=== PATIENT | male | born 1950 | race Two or more races ===

== ENCOUNTER 2017-07-16 08:07 | Inpatient (IN) | payer MEDICARE, OTHER ==
[~2017-07-16] VITALS: Ht 172.7 cm; Wt 72.6 kg
[2017-07-16] VITALS (12 sets, daily range): BP systolic 123–155; BP diastolic 59–78
[~2017-07-16 08:07] MED LIST: ENALAPRIL MALEA10 MG ORAL; GLIMEPIRIDE4 MG ORAL; LOSARTAN POTASS25 MG ORAL; METFORMIN HCL1000 M1 ORAL; METOPROLOL SUCC25 MG ORAL; [UNRECOGNIZED DRUG - OTHER] PO; ceFAZolin sod 1 GM in NS 55 ML IVPB ONE
--- NOTE | 2017-07-16 12:03 | Pre-Procedure Note/Attestation ---
Pre-Procedure Note/Attestation Complete Prior to Procedure Planned Procedure: not applicable Procedure Narrative: TURP Indications for Procedure Pre-Operative Diagnosis: BPH Attestation I attest that I discussed the nature of the procedure; its benefits; risks and complications; and alternatives (and the risks and benefits of such alternatives ), prior to the procedure, with the patient (or the patient's legal paper sales representative). I attest that, if there was a reasonable possibility of needing a blood transfusion, the patient (or the patient's legal paper sales representative) was given the [facility] standardized written summary, pursuant to the [place] Blood Safety Act ([place] [facility] and Safety Code # 1645, as amended). I attest that I re-evaluated the patient just prior to the surgery and that there has been no change in the patient's H&P, except as documented below: Kadeem Pal MD Jul 16, 2017 12:03
--- NOTE | 2017-07-16 12:04 | Brief Operative Note ---
Immediate Post Operative Note Operative Note Pre-op Diagnosis: BPH Procedure: TURP Post-op Diagnosis: same Post-op Diagnosis: same as pre-op Surgeon: Pedro Pal Anesthesia: general Specimen: yes Complications: none Condition: stable Estimated Blood Loss: minimal Implant(s) used?: No Kadeem Pal MD Jul 16, 2017 12:04
[2017-07-16] MEDS ORDERED: Norco 5mg/325mg tab ORAL PRN (12:15)
[2017-07-16] MEDS ORDERED: HYDROmorphone 1mg/ml Carpuject IVP PRN (12:15)
[2017-07-16] MEDS ORDERED: NS Irrig 4000ml IRRIG ONE ×2 (12:30→12:40)
[2017-07-16] MEDS ORDERED: Midazolam 2mg/2ml Inj ONE (12:40)
[2017-07-16] MEDS ORDERED: LR 1000ml ONE (12:40)
[2017-07-16] MEDS ORDERED: Morphine Sulfate 10mg/ml Inj ONE ×2 (12:40)
[2017-07-16] MEDS ORDERED: fentaNYL 100 mcg/2 mL IV ONE (12:40)
[2017-07-16] MEDS ORDERED: NS Irrig 1000ml ONE (12:40)
[2017-07-16] MEDS ORDERED: Ketorolac 30mg Inj ONE (12:40)
[2017-07-16] MEDS ORDERED: Sterile Water Irrig 1000ml IRRIG ONE (12:40)
[2017-07-16] MEDS ORDERED: Propofol 10mg/ml 20ml IV ONE (12:40)
[2017-07-16] MEDS ORDERED: LR 1000ml 1,000 ML IVLG SCH (13:10)
--- NOTE | 2017-07-16 13:10 | Anethesia Preoperative Eval ---
Anesthesia Pre-op PMH/ROS General Date of Evaluation: Jul 16, 2017 Time of Evaluation: 12:15 Anesthesiologist: Khris ASA Score: ASA 3 Mallampati Score Class I : Soft palate, uvula, fauces, pillars visible Class II: Soft palate, uvula, fauces visible Class III: Soft palate, base of uvula visible Class IV: Only hard plate visible Mallampati Classification: Class II Surgeon: Demarco Diagnosis: BPH Surgical Procedure: TUPR Anesthesia History: none Social History: smoking - h/o Family History: no anesthesia problems Allergies: Coded Allergies: PENICILLINS (Verified Allergy, Unknown, 07/15/17) Medications: see eMAR Past Medical History Cardiovascular: Reports: HTN, Denies: CAD, NM, arrhythmia, other, valve dz Pulmonary: Denies: COPD, ANTONIO, asthma, other Gastrointestinal/Genitourinary: Reports: GERD - mild, Denies: CRI, ESRD, other Neurologic/Psychiatric: Denies: CVA, TIA, dementia, depression/anxiety, other Endocrine: Reports: DM - on pills, Denies: hypothyroidism, other, steroids Hematology/Immune: Denies: DVT, anemia, bleeding disorder, other Musculoskeletal/Integumentary: Denies: DDD, DJD, OA, RA, edema, other PMH Narrative: as above PSxH Narrative: hernia repair Anesthesia Pre-op Phys. Exam Physician Exam Last Vital Signs Date Time Temp Pulse Resp B/P Pulse Ox O2 Delivery O2 Flow Rate FiO2 07/16/17 08:47 97.5 65 18 155/78 94 Room Air Constitutional: NAD Neurologic: CN 2-12 intact Cardiovascular: RRR, no M/R/G Respiratory: CTA Gastrointestinal: S/NT/ND Airway Exam Mallampati Score: Class II MO: limited Neck: stiff ROM: limited Teeth: missing Dentures: lower - partial, upper Anesthesia Pre-op A/P Labs see chart Studies Pre-op Studies: EKG - NSR Risk Assessment & Plan Assessment: ASA 3 Plan: GA with LMA Status Change Before Surgery: No Pre-Antibiotics Drug: Ancef 1gr. Given Within 1 Hr of Incision: Yes Time Given: 12:40 LONDON DIAL M.D. Jul 16, 2017 13:10
[2017-07-16] MEDS ORDERED: DiphenhydrAMINE 50mg/ml Inj IVP PRN (13:15)
[2017-07-16] MEDS ORDERED: Hydromorphone 0.5mg/0.5ml inj IVP PRN (13:15)
[2017-07-16] MEDS ORDERED: Meperidine 25mg/0.5ml Inj (FOR RIGORS ONLY) IV PRN (13:15)
[2017-07-16] MEDS ORDERED: Midazolam 2mg/2ml Inj IVP PRN (13:15)
--- NOTE | 2017-07-16 13:39 | Immediate Post-Op Evaluation ---
Immediate Post-Op Evalulation Immediate Post-Op Evalulation Procedure: TURP Date of Evaluation: Jul 16, 2017 Time of Evaluation: 13:37 IV Fluids: 1600 Blood Products: none Estimated Blood Loss: 50 Urinary Output: n/a Blood Pressure Systolic: 142 Blood Pressure Diastolic: 68 Pulse Rate: 62 Respiratory Rate: 20 O2 Sat by Pulse Oximetry: 99 Temperature (Fahrenheit): 97.6 Pain Score (1-10): 2 Nausea: No Vomiting: No Complications none Patient Status: patent, none Hydration Status: adequate LONDON DIAL M.D. Jul 16, 2017 13:39
[2017-07-16 14:30] LABS: BASOPHILS % (AUTO) 0.4 % (0.0-2.0); EOSINOPHILS % (AUTO) 0.8 % (0.0-3.0); LYMPHOCYTES % (AUTO) 24.9 % (20.0-45.0); MEAN CORPUSCULAR HEMOGLOBIN 29.6 PG (27.0-31.0); MEAN CORPUSCULAR HGB CONC 33.4 G/DL (32.0-36.0); MEAN CORPUSCULAR VOLUME 89 FL (80-99); MEAN PLATELET VOLUME 6.1 FL (6.5-10.1); MONOCYTES % (AUTO) 4.7 % (1.0-10.0); NEUTROPHILS % (AUTO) 69.3 % (45.0-75.0); PLATELET COUNT 210 K/UL (150-450); RED BLOOD COUNT 4.51 M/UL (4.70-6.10); RED CELL DISTRIBUTION WIDTH 11.2 % (11.6-14.8); WHITE BLOOD COUNT 8.1 K/UL (4.8-10.8)
[2017-07-16 14:42] LABS: ANION GAP 8 (5-15); CARBON DIOXIDE 29 mEQ/L (20-30); CHLORIDE 104 mEQ/L (98-107); CREATININE 0.9 mg/dL (0.7-1.2); GLOMERULAR FILTRATION RATE > 60 mL/min (>60); HEMOLYSIS 2; POTASSIUM 3.7 mEQ/L (3.4-4.9); SODIUM 141 mEQ/L (135-145)
[2017-07-16] MEDS: D5 1/2NS w/KCl 20mEq 1,000 ML IV SCH (16:35)
--- NOTE | 2017-07-16 16:41 | History and Physical ---
History of Present Illness General Date patient seen: Jul 16, 2017 Present Illness HPI 67 year old male with hx of DM, HTN, admitted for prostatecomy. Pt tolerated the procedure well and admitted to floor for postoperative care. Allergies: Coded Allergies: PENICILLINS (Verified Allergy, Unknown, 07/15/17) Medication History Scheduled Enalapril Maleate* (Enalapril Maleate*), 10 MG ORAL DAILY, (Reported) Glimepiride* (Glimepiride*), 4 MG ORAL BEFORE BREAKFAST, (Reported) Losartan Potassium* (Losartan Potassium*), 12.5 MG ORAL DAILY, (Reported) Metformin Hcl* (Metformin Hcl*), 1,000 MG ORAL BID, (Reported) Metoprolol Succinate* (Metoprolol Succinate*), 25 MG ORAL DAILY, (Reported) [Dudasteride], 0.5 MG PO DAILY, (Reported) Patient History Healthcare decision maker N Resuscitation status Full Code Advanced Directive on File No Review of Systems All Other Systems: negative except mentioned in HPI Physical Exam General Appearance: WD/WN, lethargic Lines, tubes and drains: peripheral, central line HEENT: normocephalic, anicteric, PERRL Neck: normal alignment Respiratory/Chest: chest wall non-tender, lungs clear Breasts: no masses Cardiovascular/Chest: normal rate, regularly irregular Abdomen: normal bowel sounds, non tender Genitourinary/Rectal: normal genital exam, normal rectal exam Last 24 Hour Vital Signs Date Time Temp Pulse Resp B/P Pulse Ox O2 Delivery O2 Flow Rate FiO2 07/16/17 15:25 97.7 58 18 130/62 96 Room Air 07/16/17 15:00 60 18 135/65 97 Room Air 07/16/17 14:45 61 17 132/63 95 Room Air 07/16/17 14:30 97.3 58 18 139/61 96 Room Air 07/16/17 14:15 60 15 138/67 97 Room Air 07/16/17 14:00 56 17 123/63 99 Simple Mask 6.0 07/16/17 13:50 58 14 132/63 99 Simple Mask 6.0 07/16/17 13:40 61 17 126/59 100 Simple Mask 6.0 07/16/17 13:39 62 20 99 07/16/17 13:32 97.8 62 20 142/68 99 Simple Mask 6.0 07/16/17 08:47 97.5 65 18 155/78 94 Room Air Laboratory Tests Test 07/16/17 14:20 White Blood Count 8.1 K/UL (4.8-10.8) Red Blood Count 4.51 M/UL (4.70-6.10) L Hemoglobin 13.4 G/DL (14.2-18.0) L Hematocrit 40.0 % (42.0-52.0) L Mean Corpuscular Volume 89 FL (80-99) Mean Corpuscular Hemoglobin 29.6 PG (27.0-31.0) Mean Corpuscular Hemoglobin Concent 33.4 G/DL (32.0-36.0) Red Cell Distribution Width 11.2 % (11.6-14.8) L Platelet Count 210 K/UL (150-450) Mean Platelet Volume 6.1 FL (6.5-10.1) L Neutrophils (%) (Auto) 69.3 % (45.0-75.0) Lymphocytes (%) (Auto) 24.9 % (20.0-45.0) Monocytes (%) (Auto) 4.7 % (1.0-10.0) Eosinophils (%) (Auto) 0.8 % (0.0-3.0) Basophils (%) (Auto) 0.4 % (0.0-2.0) Sodium Level 141 mEQ/L (135-145) Potassium Level 3.7 mEQ/L (3.4-4.9) Chloride Level 104 mEQ/L (98-107) Carbon Dioxide Level 29 mEQ/L (20-30) Anion Gap 8 (5-15) Blood Urea Nitrogen 13 mg/dL (7-23) Creatinine 0.9 mg/dL (0.7-1.2) Estimat Glomerular Filtration Rate > 60 mL/min (>60) Glucose Level 186 mg/dL (74-106) H Calcium Level 10.0 mg/dL (8.6-10.2) Height (Feet): 5 Height (Inches): 8.00 Weight (Pounds): 160 Medications Current Medications Medications (Trade) Dose Ordered Sig/John Route PRN Reason Start Time Stop Time Status Last Admin Dose Admin Acetaminophen (Tylenol) 650 mg Q4H PRN ORAL FEVER 07/16/17 12:15 08/15/17 12:14 Acetaminophen (Tylenol) 650 mg Q6H PRN ORAL Mild Pain (Pain Scale 1-3) 07/16/17 12:15 08/15/17 12:14 Acetaminophen/ Hydrocodone Bitart ([place] 5/325) 1 tab Q4H PRN ORAL Moderate Pain (Pain Scale 4-6) 07/16/17 12:15 07/23/17 12:14 Cefazolin Sodium (Ancef 2gm/50ml premix) 50 ml @ 100 mls/hr Q8H IV 07/16/17 20:00 07/17/17 04:29 Dextrose/ Electrolytes (D5 0.45%NS W/ KCl 20mEq) 1,000 ml @ 100 mls/hr Q10H IV 07/16/17 16:30 08/15/17 16:29 Docusate Sodium (Colace) 100 mg TWICE A DAY ORAL 07/16/17 18:00 08/15/17 17:59 Hydromorphone HCl (Dilaudid) 1 mg Q3H PRN IVP pain score 4-6 07/16/17 12:15 07/23/17 12:14 Ondansetron HCl 4 mg 4 mg Q4H PRN IVP Nausea & Vomiting 07/16/17 15:45 08/15/17 15:44 07/16/17 15:48 Temazepam (Restoril) 7.5 mg DAILYPRN PRN ORAL Insomnia 07/16/17 12:15 07/23/17 12:14 Assessment/Plan Problem List: (1) S/P prostatectomy ICD Codes: Z90.79 - Acquired absence of other genital organ(s) SNOMED: 40275104, 17643337, 873724406 (2) Diabetes mellitus ICD Codes: E11.9 - Type 2 diabetes mellitus without complications SNOMED: 23113066 (3) Hypertension ICD Codes: I10 - Essential (primary) hypertension SNOMED: 71276745 Assessment/Plan frequent irrigation sliding scale diabetic diet symptomatic treatment NICK DESIR Jul 16, 2017 16:41
[2017-07-16] MEDS ORDERED: Zolpidem 5mg tab ORAL PRN (16:45)
[2017-07-16] MEDS ORDERED: Miralax 17gm pkt ORAL PRN (16:45)
[2017-07-16] MEDS ORDERED: Mylanta II UD 30ml ORAL PRN (16:45)
[2017-07-16] MEDS ORDERED: LORazepam Inj 2mg/ml 1ml IV PRN (16:45)
[2017-07-16] MEDS ORDERED: Morphine Sulfate 2mg/ml Inj IVP PRN (16:45)
[2017-07-16] MEDS: Docusate 100mg cap ORAL SCH (17:40)
[2017-07-16] MEDS: ceFAZolin 2gm/50ml Premix 50 ML IV SCH (19:35)
[2017-07-16] MEDS ORDERED: ceFAZolin sod 2 GM in D5W 110 ML IV SCH (20:00)
[2017-07-16] MEDS: NovoLOG Insulin Flexpen SUBQ SCH (20:06)
[2017-07-17] VITALS (7 sets, daily range): BP systolic 123–171; BP diastolic 60–78
[2017-07-17] MEDS: D5 1/2NS w/KCl 20mEq 1,000 ML IV SCH ×2 (02:30→06:18)
[2017-07-17] MEDS: ceFAZolin 2gm/50ml Premix 50 ML IV SCH (04:16)
[2017-07-17] MEDS: NovoLOG Insulin Flexpen SUBQ SCH ×4 (06:19→20:23)
[2017-07-17 07:29] LABS: BASOPHILS % (AUTO) 0.2 % (0.0-2.0); LYMPHOCYTES % (AUTO) 22.7 % (20.0-45.0); MEAN CORPUSCULAR HEMOGLOBIN 30.5 PG (27.0-31.0); MEAN CORPUSCULAR HGB CONC 34.3 G/DL (32.0-36.0); MEAN CORPUSCULAR VOLUME 89 FL (80-99); MEAN PLATELET VOLUME 6.7 FL (6.5-10.1); MONOCYTES % (AUTO) 6.2 % (1.0-10.0); NEUTROPHILS % (AUTO) 69.8 % (45.0-75.0); PLATELET COUNT 175 K/UL (150-450); RED BLOOD COUNT 4.12 M/UL (4.70-6.10); RED CELL DISTRIBUTION WIDTH 10.9 % (11.6-14.8); WHITE BLOOD COUNT 9.3 K/UL (4.8-10.8)
[2017-07-17 07:43] LABS: ALANINE AMINOTRANSFERASE 9 U/L (3-41); ALBUMIN/GLOBULIN RATIO 1.7 (1.0-2.7); ANION GAP 10 (5-15); ASPARTATE AMINO TRANSFERASE 12 U/L (5-40); CALCIUM 8.3 mg/dL (8.6-10.2); CARBON DIOXIDE 27 mEQ/L (20-30); CHLORIDE 101 mEQ/L (98-107); CHOLESTEROL 189 mg/dL (< 200); CHOLESTEROL/HDL RATIO 4.1 (3.3-4.4); CREATININE 0.9 mg/dL (0.7-1.2); GLOMERULAR FILTRATION RATE > 60 mL/min (>60); HEMOLYSIS 4; LDL CHOLESTEROL (CALC.) 122 mg/dL (60-99); POTASSIUM 3.2 mEQ/L (3.4-4.9); SODIUM 138 mEQ/L (135-145); TOTAL PROTEIN 5.4 g/dL (6.6-8.7)
[2017-07-17] MEDS: Metoprolol Succinate XL 25mg tab ORAL SCH (08:30)
[2017-07-17] MEDS: Docusate 100mg cap ORAL SCH ×2 (08:37→17:24)
[2017-07-17] MEDS: Losartan 25mg tab ORAL SCH ×2 (08:37→15:37)
--- NOTE | 2017-07-17 12:09 | 48 Hour Post Anesthesia Eval ---
Post Anesthesia Evaluation Procedure: TURP Date of Evaluation: Jul 17, 2017 Time of Evaluation: 12:08 Blood Pressure Systolic: 124 0: 58 Pulse Rate: 64 Respiratory Rate: 20 Temperature (Fahrenheit): 97.5 O2 Sat by Pulse Oximetry: 98 Airway: patent Nausea: No Vomiting: No Pain Intensity: 2 Hydration Status: adequate Cardiopulmonary Status: stable Mental Status/LOC: patient returned to baseline Follow-up Care/Observations: n/a Post-Anesthesia Complications: none Follow-up care needed: ready to discharge LONDON DIAL M.D. Jul 17, 2017 12:09
[2017-07-17] MEDS: Levofloxacin 500mg tab ORAL SCH (17:24)
--- NOTE | 2017-07-17 19:31 | Pulmonology Progress Note ---
Assessment/Plan Problems: (1) S/P prostatectomy (2) Diabetes mellitus (3) Hypertension Subjective Allergies: Coded Allergies: PENICILLINS (Verified Allergy, Unknown, 07/15/17) Objective Last 24 Hour Vital Signs Date Time Temp Pulse Resp B/P Pulse Ox O2 Delivery O2 Flow Rate FiO2 07/17/17 16:54 61 160/77 07/17/17 16:36 98.2 62 20 171/78 100 Room Air 07/17/17 15:38 171/78 07/17/17 15:37 171/78 07/17/17 12:09 64 20 98 07/17/17 12:00 97.1 53 21 148/71 98 Room Air 07/17/17 08:32 98.8 51 19 123/60 99 Room Air 07/17/17 08:30 51 123/60 07/17/17 04:47 97.5 53 18 136/60 97 Room Air 07/17/17 00:28 97.9 55 17 136/67 97 Room Air 07/16/17 20:00 98.1 57 18 148/71 98 Room Air Intake and Output 07/16/17 07/17/17 19:00 07:00 Intake Total 740 ml 23908 ml Output Total 901 ml 1451 ml Balance -161 ml 44463 ml Intake Oral 340 ml 200 ml IV Total 400 ml 850 ml Other 61007 ml Output Urine Total 850 ml 1450 ml Emesis 1 ml 1 ml Estimated Blood Loss 50 ml # Voids 1 Laboratory Tests 07/17/17 05:05: White Blood Count 9.3, Red Blood Count 4.12L, Hemoglobin 12.6L, Hematocrit 36.7L , Mean Corpuscular Volume 89, Mean Corpuscular Hemoglobin 30.5, Mean Corpuscular Hemoglobin Concent 34.3, Red Cell Distribution Width 10.9L, Platelet Count 175, Mean Platelet Volume 6.7, Neutrophils (%) (Auto) 69.8, Lymphocytes (%) (Auto) 22.7, Monocytes (%) (Auto) 6.2, Eosinophils (%) (Auto) 1.0, Basophils (%) (Auto) 0.2, Sodium Level 138, Potassium Level 3.2L, Chloride Level 101, Carbon Dioxide Level 27, Anion Gap 10, Blood Urea Nitrogen 11, Creatinine 0.9, Estimat Glomerular Filtration Rate > 60, Glucose Level 179H, Calcium Level 8.3L, Total Bilirubin 0.5, Aspartate Amino Transf (AST/SGOT) 12, Alanine Aminotransferase (ALT/SGPT) 9, Alkaline Phosphatase 48, Total Protein 5.4L, Albumin 3.4L, Globulin 2.0, Albumin/Globulin Ratio 1.7, Triglycerides Level 103, Cholesterol Level 189, LDL Cholesterol 122H, HDL Cholesterol 46, Cholesterol/HDL Ratio 4.1 Current Medications Medications (Trade) Dose Ordered Sig/John Route PRN Reason Start Time Stop Time Status Last Admin Dose Admin Acetaminophen (Tylenol) 650 mg Q4H PRN ORAL FEVER 07/16/17 12:15 08/15/17 12:14 Acetaminophen (Tylenol) 650 mg Q6H PRN ORAL Mild Pain (Pain Scale 1-3) 07/16/17 12:15 08/15/17 12:14 Acetaminophen/ Hydrocodone Bitart ([place] 5/325) 1 tab Q4H PRN ORAL Moderate Pain (Pain Scale 4-6) 07/16/17 12:15 07/23/17 12:14 Al Hydroxide/Mg Hydroxide (Mylanta II) 30 ml Q6H PRN ORAL dyspepsia 07/16/17 16:45 08/15/17 16:44 Dextrose (Dextrose 50%) STAT PRN IV Hypoglycemia 07/16/17 16:45 08/15/17 16:44 Docusate Sodium (Colace) 100 mg TWICE A DAY ORAL 07/16/17 18:00 08/15/17 17:59 Enalapril Maleate (Vasotec) 10 mg DAILY ORAL 07/17/17 09:00 08/16/17 08:59 07/17/17 15:38 Hydromorphone HCl (Dilaudid) 1 mg Q3H PRN IVP pain score 4-6 07/16/17 12:15 07/23/17 12:14 Insulin Aspart (NovoLOG) BEFORE MEALS AND HS SUBQ 07/16/17 21:00 08/15/17 20:59 07/17/17 16:17 Levofloxacin (Levaquin) 500 mg BID ORAL 07/17/17 18:00 07/24/17 17:59 07/17/17 17:24 Lorazepam (Ativan 2mg/ml 1ml) 0.5 mg Q4H PRN IV For Anxiety 07/16/17 16:45 07/23/17 16:44 Losartan Potassium (Cozaar) 12.5 mg DAILY ORAL 07/17/17 09:00 08/16/17 08:59 07/17/17 15:37 Metoprolol Succinate (Toprol XL) 25 mg DAILY ORAL 07/17/17 09:00 08/16/17 08:59 07/17/17 08:30 Morphine Sulfate (Morphine Sulfate) 1 mg Q4H PRN IVP For Pain 4-10 07/16/17 16:45 07/23/17 16:44 Ondansetron HCl (Zofran) 4 mg Q4H PRN IVP Nausea & Vomiting 07/16/17 15:45 08/15/17 15:44 07/16/17 20:02 Polyethylene Glycol (Miralax) 17 gm HSPRN PRN ORAL Constipation 07/16/17 16:45 08/15/17 16:44 Temazepam (Restoril) 7.5 mg DAILYPRN PRN ORAL Insomnia 07/16/17 12:15 07/23/17 12:14 Zolpidem Tartrate (Ambien) 5 mg HSPRN PRN ORAL Unrelieved Insomnia 07/16/17 16:45 08/15/17 16:44 NICK DESIR Jul 17, 2017 19:31
--- NOTE | 2017-07-17 20:02 | Operative Note - Dictated ---
DATE OF OPERATION: 07/16/2017 PREOPERATIVE DIAGNOSIS: BPH retention. POSTOPERATIVE DIAGNOSIS: BPH retention. OPERATION: Transurethral resection of the prostate. SURGEON: Kadeem Pal M.D. ANESTHESIA: General. FINDINGS: Enlarged prostate. INDICATION FOR SURGERY: Chronic urological symptoms despite medical therapy. Treatment options were explained to him in great length including all potential complications, he signed a consent. DESCRIPTION OF PROCEDURE: He was brought to the operating room, placed in lithotomy position, prepped and draped in standard fashion. Under general anesthesia, cystoscope was introduced into the bladder followed by resectoscope. Prostate was resected in standard way including medial and lateral lobes. Chips were evacuated with the [employer] logistics evacuator. Brandon catheter, 24 three-way was placed after hemostasis. The patient tolerated procedure well. No evidence of complications. Sponge count and instrument count was correct. Kadeem Pal M.D. DR: KATINA JOB#: [id number] CC:
[2017-07-18 00:32] VITALS: BP 153/76
[2017-07-18 04:00] VITALS: BP 146/70
[2017-07-18] MEDS: NovoLOG Insulin Flexpen SUBQ SCH ×3 (06:28→16:30)
--- NOTE | 2017-07-18 07:20 | Pulmonology Progress Note ---
Assessment/Plan Assessment/Plan ASSESSMENT BPH s/p TURP 07/16 DM HTN Hypercholesteremia PLAN OF CARE MS floor s/p IVF abx voiding s difficulties HH stable BP management with CCB and BB, stable BS management with SS of insulin pain amangeemtn, pain free currently Bowel regimen lipid panel with elevated LDL recommended low cholesterol low fat diet , will need statin LDL not at goal and risk factors DM and HTN- patient reluctant to start now , will refer to PMD surgery follows dc plan when cleared by surgeon case discussed and evaluated by supervising physician Subjective Allergies: Coded Allergies: PENICILLINS (Verified Allergy, Unknown, 07/15/17) Subjective no leukocytosis, early am low grade fever, currently afebrile voided freely with blood tinged urine no difficulties with voiding BP and BS reman stable Objective Last 24 Hour Vital Signs Date Time Temp Pulse Resp B/P Pulse Ox O2 Delivery O2 Flow Rate FiO2 07/18/17 04:00 99.5 57 18 146/70 96 Room Air 07/18/17 00:32 99.1 62 18 153/76 93 Room Air 07/17/17 20:00 98.2 67 22 158/64 97 Room Air 07/17/17 16:54 61 160/77 07/17/17 16:36 98.2 62 20 171/78 100 Room Air 07/17/17 15:38 171/78 07/17/17 15:37 171/78 07/17/17 12:09 64 20 98 07/17/17 12:00 97.1 53 21 148/71 98 Room Air 07/17/17 08:32 98.8 51 19 123/60 99 Room Air 07/17/17 08:30 51 123/60 Intake and Output 07/17/17 07/18/17 19:00 07:00 Intake Total 500 ml Output Total 1375 ml 1250 ml Balance -875 ml -1250 ml Intake Oral 500 ml Output Urine Total 1375 ml 1250 ml General Appearance: WD/WN, no acute distress, other - A/A/O x 4 , [place] speaking male HEENT: normocephalic, atraumatic, anicteric, mucous membranes moist, PERRL Respiratory/Chest: lungs clear, no respiratory distress, no accessory muscle use Cardiovascular: normal peripheral pulses, normal rate, regular rhythm, no JVD Abdomen: normal bowel sounds, soft, non tender, non distended Genitourinary: normal external genitalia Extremities: no edema, pedal pulses normal Neurologic/Psychiatric: no motor/sensory deficits, alert, oriented x 3, responsive, normal mood/affect Musculoskeletal: normal muscle bulk Current Medications Medications (Trade) Dose Ordered Sig/John Route PRN Reason Start Time Stop Time Status Last Admin Dose Admin Acetaminophen (Tylenol) 650 mg Q4H PRN ORAL FEVER 07/16/17 12:15 08/15/17 12:14 Acetaminophen (Tylenol) 650 mg Q6H PRN ORAL Mild Pain (Pain Scale 1-3) 07/16/17 12:15 08/15/17 12:14 Acetaminophen/ Hydrocodone Bitart ([place] 5/325) 1 tab Q4H PRN ORAL Moderate Pain (Pain Scale 4-6) 07/16/17 12:15 07/23/17 12:14 Al Hydroxide/Mg Hydroxide (Mylanta II) 30 ml Q6H PRN ORAL dyspepsia 07/16/17 16:45 08/15/17 16:44 Dextrose (Dextrose 50%) STAT PRN IV Hypoglycemia 07/16/17 16:45 08/15/17 16:44 Docusate Sodium (Colace) 100 mg TWICE A DAY ORAL 07/16/17 18:00 08/15/17 17:59 Enalapril Maleate (Vasotec) 10 mg DAILY ORAL 07/17/17 09:00 08/16/17 08:59 07/17/17 15:38 Hydromorphone HCl (Dilaudid) 1 mg Q3H PRN IVP pain score 4-6 07/16/17 12:15 07/23/17 12:14 Insulin Aspart (NovoLOG) BEFORE MEALS AND HS SUBQ 07/16/17 21:00 08/15/17 20:59 07/18/17 06:28 Levofloxacin (Levaquin) 500 mg BID ORAL 07/17/17 18:00 07/24/17 17:59 07/17/17 17:24 Lorazepam (Ativan 2mg/ml 1ml) 0.5 mg Q4H PRN IV For Anxiety 07/16/17 16:45 07/23/17 16:44 Losartan Potassium (Cozaar) 12.5 mg DAILY ORAL 07/17/17 09:00 08/16/17 08:59 07/17/17 15:37 Metoprolol Succinate (Toprol XL) 25 mg DAILY ORAL 07/17/17 09:00 08/16/17 08:59 07/17/17 08:30 Morphine Sulfate (Morphine Sulfate) 1 mg Q4H PRN IVP For Pain 4-10 07/16/17 16:45 07/23/17 16:44 Ondansetron HCl (Zofran) 4 mg Q4H PRN IVP Nausea & Vomiting 07/16/17 15:45 08/15/17 15:44 07/16/17 20:02 Polyethylene Glycol (Miralax) 17 gm HSPRN PRN ORAL Constipation 07/16/17 16:45 08/15/17 16:44 Temazepam (Restoril) 7.5 mg DAILYPRN PRN ORAL Insomnia 07/16/17 12:15 07/23/17 12:14 Zolpidem Tartrate (Ambien) 5 mg HSPRN PRN ORAL Unrelieved Insomnia 07/16/17 16:45 08/15/17 16:44 Coni Degroot NP (Vanchtein) Jul 18, 2017 07:20
[2017-07-18 08:00] VITALS: BP 118/61
[2017-07-18] MEDS: Metoprolol Succinate XL 25mg tab ORAL SCH ×2 (08:47→08:52)
[2017-07-18] MEDS: Losartan 25mg tab ORAL SCH (08:47)
[2017-07-18] MEDS: Levofloxacin 500mg tab ORAL SCH (08:50)
[2017-07-18] MEDS: Docusate 100mg cap ORAL SCH (08:51)
[2017-07-18 09:25] LABS: BASOPHILS % (AUTO) 0.4 % (0.0-2.0); EOSINOPHILS % (AUTO) 0.8 % (0.0-3.0); LYMPHOCYTES % (AUTO) 21.9 % (20.0-45.0); MEAN CORPUSCULAR HEMOGLOBIN 30.6 PG (27.0-31.0); MEAN CORPUSCULAR HGB CONC 33.8 G/DL (32.0-36.0); MEAN CORPUSCULAR VOLUME 91 FL (80-99); MEAN PLATELET VOLUME 6.8 FL (6.5-10.1); NEUTROPHILS % (AUTO) 69.9 % (45.0-75.0); PLATELET COUNT 218 K/UL (150-450); RED BLOOD COUNT 4.92 M/UL (4.70-6.10); RED CELL DISTRIBUTION WIDTH 11.3 % (11.6-14.8); WHITE BLOOD COUNT 10.8 K/UL (4.8-10.8)
[2017-07-18 09:48] LABS: ALANINE AMINOTRANSFERASE 18 U/L (3-41); ALBUMIN/GLOBULIN RATIO 1.6 (1.0-2.7); ANION GAP 10 (5-15); ASPARTATE AMINO TRANSFERASE 35 U/L (5-40); CALCIUM 9.2 mg/dL (8.6-10.2); CARBON DIOXIDE 29 mEQ/L (20-30); CHLORIDE 96 mEQ/L (98-107); CREATININE 1.2 mg/dL (0.7-1.2); GLOMERULAR FILTRATION RATE > 60 mL/min (>60); HEMOLYSIS 2; MAGNESIUM 2.1 mg/dL (1.7-2.5); PHOSPHORUS 2.3 mg/dL (2.5-4.8); POTASSIUM 3.4 mEQ/L (3.4-4.9); SODIUM 135 mEQ/L (135-145); TOTAL PROTEIN 6.8 g/dL (6.6-8.7)
[2017-07-18 12:38] VITALS: BP 139/75
[2017-07-18] MEDS ORDERED: Phenazopyridine 200mg tab ORAL ONE (15:15)
[2017-07-18] MEDS ORDERED: PHENAZOPYRIDIN100 MG ORAL (15:38)
[2017-07-18] MEDS ORDERED: COLACE100 MG ORAL (15:38)
[2017-07-18] MEDS ORDERED: LEVAQUIN500 MG ORAL (15:38)
[2017-07-18] MEDS ORDERED: ACETAMINOPHEN-1 EAC1 ORAL (15:38)
[2017-07-18] MEDS ORDERED: Tubing IV Secondary IV ONE (17:26)
[2017-07-18] MEDS ORDERED: NS Irrig 4000ml IRRIG ONE (17:26)
--- NOTE | 2017-07-21 09:55 | Discharge Summary ---
Discharge Summary Hospital Course Date of Admission Jul 16, 2017 at 08:07 Date of Discharge Jul 18, 2017 at 17:27 Admitting Diagnosis DEEDEE Vargas is a 67 year old male who was admitted on Jul 16, 2017 at 08 :07 for Anlar Prostate Hospital Course dc summary #[id number] Discharge Medications New Medications: Acetaminophen With Codeine (T#3) (Tylenol #3 Tab*) Y Tab 1 TAB ORAL Q4H PRN, #20 TAB Phenazopyridine Hcl* (Pyridium*) 100 Mg Tablet 100 MG ORAL THREE TIMES A DAY, #9 TAB Docusate Sodium* (Colace*) 100 Mg Capsule 100 MG ORAL TWICE A DAY, #30 CAP Levofloxacin* (Levaquin*) 500 Mg Tablet 250 MG ORAL BID, #7 TAB Continued Medications: Enalapril Maleate* (Enalapril Maleate*) 10 Mg Tablet 10 MG ORAL DAILY, TAB Glimepiride* (Glimepiride*) 4 Mg Tablet 4 MG ORAL BEFORE BREAKFAST, TAB Losartan Potassium* (Losartan Potassium*) 25 Mg Tablet 12.5 MG ORAL DAILY, TAB Metformin Hcl* (Metformin Hcl*) 1,000 Mg Tablet 1000 MG ORAL BID, TAB Metoprolol Succinate* (Metoprolol Succinate*) 25 Mg Tab.er.24h 25 MG ORAL DAILY, TAB [Dudasteride] () 0.5 MG PO DAILY Discharge Condition Upon Discharge: stable Discharge Disposition Patient was discharged to Home (01) Discharge Diagnoses: Zane (Eddein)Coni NP Jul 21, 2017 09:55
--- NOTE | 2017-07-22 02:15 | Discharge Summary 2 SIG ---
DATE OF ADMISSION: 07/16/2017 DATE OF DISCHARGE: 07/18/2017 REASON FOR ADMISSION: The patient is a 67-year-old male with history of diabetes, hypertension, and BPH, admitted for elective surgery. The patient with chronic urological symptoms despite medical therapy and admitted for TURP. ADMITTING DIAGNOSES: 1. Benign prostatic hypertrophy. 2. Diabetes. 3. Hypertension. HOSPITAL STAY: Status post transurethral resection of prostate on 07/16/2017. Course of recovery was uneventful. Initially on IV fluids. Prophylactic antibiotic provided. The patient voided without difficulties. Encouraged fluid intake. Hemoglobin and hematocrit stable. Urine clear. Blood pressure was managed with calcium channel kemi and beta-kemi was stable. Blood sugar was managed with sliding scale of insulin. Pain management provided. Bowel regimen instituted. Lipid panel revealed elevated LDL and recommended the patient to have low-cholesterol and low-fat diet. The patient will need a statin. The patient has a risk factor of diabetes and hypertension and LDL is not at goal. The patient was reluctant to start therapy at the hospital. Referred to primary medical doctor for further management. Surgery closely followed. The patient was stable for discharge. Afebrile. No leukocytosis. Voided freely. Urine is clear. Pain controlled. Tolerated diet. Follow up as outpatient with surgeon. DISCHARGE DIAGNOSES: 1. Benign prostatic hypertrophy. 2. Status post transurethral resection of prostate on 07/16/2017. 3. Diabetes mellitus. 4. Hypertension. 5. Hypercholesteremia. DISCHARGE MEDICATIONS: See medication reconciliation list. DISCHARGE INSTRUCTIONS: The patient discharged to home. Follow up with the primary medical doctor. Follow up with surgeon as an outpatient. Zamzam Ibrahim M.D. I have been assigned to dictate discharge summary on this account and I was not involved in the patient's management. Coni [facility] DR: HEVER JOB#: [id number] CC:
== END 2017-07-18 17:27 | disposition home or self-care (01) | DRG 714 ==
LOC: SDSOVERFLO 08:07 → 3E 15:20
PROC: 0VT08ZZ Resection of Prostate, Via Natural or Artificial Opening Endoscopic (ICD-10-PCS; principal; 2017-07-16 11:45)
DX: N40.1 Benign prostatic hyperplasia with lower urinary tract symptoms (principal); I71.2 Thoracic aortic aneurysm, without rupture; I11.9 Hypertensive heart disease without heart failure; R33.8 Other retention of urine; E11.9 Type 2 diabetes mellitus without complications; E78.00 Pure hypercholesterolemia, unspecified; Z88.0 Allergy status to penicillin
CPT/HCPCS: 36415; 80048; 80053; 80061; 82962; 83735; 84100; 85025; 87081; 94003; 94150; J1815; J2250; J2405